=== PATIENT | male | born 1955 | race Caucasian/White ===

== ENCOUNTER 2019-01-29 19:31 | Emergency (ER) | payer OTHER ==
[~2019-01-29] VITALS: Ht 175.3 cm; Wt 93.9 kg
[2019-01-29 19:35] VITALS: BP 131/82
--- NOTE | 2019-01-29 19:35 | NUR ---
TO BED # 04 AMBULATORY
--- NOTE | 2019-01-29 19:40 | NUR ---
63 Y/O MALE LEFT LEG PAIN WITH REDNESS FOR 25 DAYS, SEEN BY PMD WITH REFERRAL LETTER. R/O DVT. A/OX4; FOLLOWS COMMANDS; BREATHING UNLABORED AND SYMMETRICAL. PAIN IS A 6/10 WHEN NOT PRESSING ON LEFT LEG. 8/10 NOTED; PATIENT STATES, "WHEN I PRESS ON THE BUMP ON MY LEG; IT FEELS LIKE IT WAS HIT WITH A HAMMER ". ERMD MADE AWARE OF STATUS. SIDE RAILS X1. AT BEDSIDE. WILL CONTINUE TO MONITOR. PMH:DENIES RX:DENIES SURGICAL HX: TOTAL HIP REPLACEMENT (2010); TEMPORARY AND PERMANANENT HIP REPLACEMENT (2019)
--- NOTE | 2019-01-29 19:53 | NUR ---
MD AT BEDSIDE EVALUATING PATIENT.
--- NOTE | 2019-01-29 20:26 | NUR ---
X-RAY AT BEDSIDE.
--- NOTE | 2019-01-29 22:11 | NUR ---
PATIENT IS QUIETLY SITTING IN BED. AT BEDSIDE. WILL CONTINUE TO MONITOR.
[2019-01-29 22:39] VITALS: BP 123/79
--- NOTE | 2019-01-29 22:39 | NUR ---
DPatient discharged with v/s stable. Written and verbal after care instructions given and explained. Patient alert, oriented and verbalized understanding of instructions. Ambulatory with steady gait. All questions addressed prior to discharge. ID band removed. Patient advised to follow up with PMD. Rx of NAPROSYN given. Patient educated on indication of medication including possible reaction and side effects. Opportunity to ask questions provided and answered.
== END 2019-01-29 22:39 | disposition home or self-care (01) ==
LOC: MED 19:31
DX: I83.92 Asymptomatic varicose veins of left lower extremity (principal); Z98.890 Other specified postprocedural states
CPT/HCPCS: 73590; 76881; 93971; 99284; Q0092

== ENCOUNTER 2019-03-21 14:15 | Emergency (ER) | payer OTHER ==
[~2019-03-21] VITALS: Ht 175.3 cm; Wt 93.9 kg
[2019-03-21 14:40] VITALS: BP 144/77
--- NOTE | 2019-03-21 14:46 | NUR ---
Triage completed, ambulates with steady gait out to ER waiting room.
--- NOTE | 2019-03-21 15:35 | NUR ---
PT TO ER BED 3
--- NOTE | 2019-03-21 15:48 | NUR ---
BIB SELF C/O DRY COUGH, WORSE AT NIGHT X 8 DAYS. NO SPUTUM PRODUCTION WITH COUGH. NO SOB, CHEST PAIN, FLU SYMPTOMS REPORTED. LUNG SOUNDS CLEAR IN BILATERAL LOBES. PT REPORTS TAKING COUGH SYRUP WITH CODEINE AT HOME BUT IT IS NOT HELPING. PT HAS BEEN SLEEPING INCLINED TO AVOID COUGHING THROUGHOUT THE NIGHT. NO PMH, NKA
[2019-03-21] MEDS ORDERED: DEXAMETHASONE 10 MG/ML VIAL IM ONE (15:50)
[2019-03-21 16:07] VITALS: BP 127/69
--- NOTE | 2019-03-21 16:07 | NUR ---
Patient discharged with v/s stable. Written and verbal after care instructions given and explained. Patient alert, oriented and verbalized understanding of instructions. Ambulatory with steady gait. All questions addressed prior to discharge. ID band removed. Patient advised to follow up with PMD. Rx of MEDROL, ALBUTEROL INHALER, TESSALON PERLES given. Patient educated on indication of medication including possible reaction and side effects. Opportunity to ask questions provided and answered.
== END 2019-03-21 16:07 | disposition home or self-care (01) ==
LOC: MED 14:15
DX: J40 Bronchitis, not specified as acute or chronic (principal)
CPT/HCPCS: 71045; 96372; 99283; J1100; Q0092

== ENCOUNTER 2019-11-07 17:23 | Emergency (ER) | payer OTHER ==
[~2019-11-07] VITALS: Ht 175.3 cm; Wt 96.6 kg
[2019-11-07 17:30] VITALS: BP 135/74
--- NOTE | 2019-11-07 17:44 | NUR ---
64 y/o male from home c/o left foot pain s/p stepping on sting ray 7 days ago. Pt states he feels like there is a part of the stinger left in foot. Mild redness noted to bottom of foot. Able to ambulate. +CMS. 6/10 burning pain, worse with ambulation. Skin warm, dry, intact. medhx: denies
--- NOTE | 2019-11-07 17:46 | NUR ---
WHITNEY Wellington at bedside examining pt
--- NOTE | 2019-11-07 18:11 | NUR ---
X-Ray at bedside.
[2019-11-07 18:44] VITALS: BP 124/69
--- NOTE | 2019-11-07 18:45 | NUR ---
Patient discharged with v/s stable. Written and verbal after care instructions given and explained. Patient alert, oriented and verbalized understanding of instructions. Ambulatory with steady gait. All questions addressed prior to discharge. ID band removed. Patient advised to follow up with PMD. Rx of Keflex 500mg and Naproxen 500mg given. Patient educated on indication of medication including possible reaction and side effects. Opportunity to ask questions provided and answered.
== END 2019-11-07 18:45 | disposition home or self-care (01) ==
LOC: MED 17:23
DX: L03.116 Cellulitis of left lower limb (principal); F17.200 Nicotine dependence, unspecified, uncomplicated
CPT/HCPCS: 73630; 99283

== ENCOUNTER 2020-10-26 14:31 | Emergency (ER) | payer OTHER ==
[~2020-10-26] VITALS: Ht 175.3 cm; Wt 96.6 kg
[2020-10-26 14:55] VITALS: BP 132/70
--- NOTE | 2020-10-26 15:20 | NUR ---
64 YO MALE BIBS C/O INTERMITTENT LLQ ABDOMINAL PAIN X3 DAYS. PAIN 4/10 AT REST, 6/10 WHEN SITTING UP, PRESSING ON THE AREA, AND COUGHING. PAIN IS NON RADIATING. SKIN IS INTACT, NO BRUISING OR SKIN DISCOLORATION TO ABD AREA. BOWEL SOUNDS ACTIVE X4. ABD IS SOFT, FLAT, TENDER TO TOUCH LLQ. PT STATES LBM TODAY X2 DESCRIBES NORMAL TO PT. DENIES URINARY FREQ, BURNING, OR DIFFICULTY STARTING A STREAM, PT STATES URINE COLOR IS ALSO NORMAL TO PATIENT. PT DENIES FEVER, CHILLS, N/V/D. A&OX4, RR EVEN AND UNLABORED. AT BEDSIDE. PMH: NONE NKDA.
--- NOTE | 2020-10-26 16:14 | NUR ---
DR KAT AT BEDSIDE EVALUATING PT.
[2020-10-26] MEDS ORDERED: NACL 0.9% 1,000 ML IV ONE (16:25)
--- NOTE | 2020-10-26 16:26 | NUR ---
JOHNSON collected, walked to lab and handed to CPT. Rebeca
[2020-10-26 16:57] LABS: BASOPHILS % (AUTO) 0.3 % (0.0-2.0); EOSINOPHILS # (AUTO) 0.2 K/uL (0-0.4); HEMATOCRIT 44.3 % (36-52); HEMOGLOBIN 14.9 g/dL (12.0-18.0); LYMPHOCYTES # (AUTO) 1.8 K/uL (2.0-11.5); LYMPHOCYTES % (AUTO) 23.5 % (20.5-51.1); MEAN CORPUSCULAR HEMOGLOBIN 31 pg (27-31); MEAN CORPUSCULAR HGB CONC 34 g/dL (33-37); MONOCYTES # (AUTO) 0.6 K/uL (0.8-1.0); MONOCYTES % (AUTO) 8.1 % (1.7-9.3); NEUTROPHILS # (AUTO) 4.9 K/uL (1.8-7.7); NEUTROPHILS % (AUTO) 65.1 % (42.2-75.2); PLATELET COUNT (AUTO) 217 K/uL (140-450); RED BLOOD CELL COUNT(AUTO) 4.77 MIL/uL (4.20-6.10); RED CELL DISTRIBUTION WIDTH 13.6 % (11.6-13.7); WHITE BLOOD COUNT (AUTO) 7.5 K/uL (4.8-10.8)
[2020-10-26 17:07] LABS: APPEARANCE,URINE CLEAR (CLEAR); BILIRUBIN,URINE NEGATIVE (NEGATIVE); BLOOD, URINE NEGATIVE (NEGATIVE); COLOR,URINE YELLOW (YELLOW); LEUKOCYTE ESTERASE ,URINE NEGATIVE (NEGATIVE); NITRITE, URINE NEGATIVE (NEGATIVE); PH,URINE 5.5 (5.0-9.0); UGLUCOSE NEGATIVE (NEGATIVE)
[2020-10-26 17:15] LABS: ANION GAP 11.7 (8-16); CARBON DIOXIDE 27.6 mmol/L (21-32); CREATININE 1.1 mg/dL (0.6-1.3); POTASSIUM 4.3 mmol/L (3.5-5.1); TOTAL BILIRUBIN 0.8 mg/dL (0.0-1.0)
--- NOTE | 2020-10-26 17:28 | NUR ---
Gabi landis in [facility] - 10/26/20 at 1728 by [email or web address] PT TAKEN TO CT VIA W/C
--- NOTE | 2020-10-26 17:28 | NUR ---
PT TRANSFERRED TO CT VIA W/C.
--- NOTE | 2020-10-26 17:42 | NUR ---
PT BACK FROM CT VIA W/C.
--- NOTE | 2020-10-26 18:19 | NUR ---
MD KAT IN ROOM WITH PATIENT.
[2020-10-26] MEDS ORDERED: MAGN1.7529 PO (18:46)
--- NOTE | 2020-10-26 19:06 | NUR ---
REPORT AND TRANSFER OF CARE ENDORSED TO [facility].
[2020-10-26 19:15] VITALS: BP 128/73
--- NOTE | 2020-10-26 19:15 | NUR ---
Patient discharged with v/s stable. Written and verbal after care instructions given and explained. Patient verbalized understanding. Ambulatory with steady gait. All questions addressed prior to discharge. Advised to follow up with PMD.
== END 2020-10-26 19:15 | disposition home or self-care (01) ==
LOC: MED 14:31
DX: K59.00 Constipation, unspecified (principal); Z79.899 Other long term (current) drug therapy; Z98.890 Other specified postprocedural states
CPT/HCPCS: 36415; 74177; 80053; 81003; 85025; 96360; 99285; J7030; Q9967

== ENCOUNTER 2020-11-29 09:36 | Emergency (ER) | payer OTHER ==
[~2020-11-29] VITALS: Ht 175.3 cm; Wt 98.4 kg
[~2020-11-29 09:36] MED LIST: MAGN1.7529 PO
[2020-11-29 09:41] VITALS: BP 134/75
--- NOTE | 2020-11-29 09:54 | NUR ---
PT SENT TO LOBBY
[2020-11-29 11:12] LABS: BASOPHILS % (AUTO) 0.3 % (0.0-2.0); EOSINOPHILS # (AUTO) 0.4 K/uL (0-0.4); EOSINOPHILS % (AUTO) 6.5 % (0.0-4.0); HEMOGLOBIN 15.3 g/dL (12.0-18.0); LYMPHOCYTES % (AUTO) 28.9 % (20.5-51.1); MEAN CORPUSCULAR HEMOGLOBIN 32 pg (27-31); MEAN CORPUSCULAR HGB CONC 34 g/dL (33-37); MEAN CORPUSCULAR VOLUME 93.7 fL (80-94); MONOCYTES # (AUTO) 0.6 K/uL (0.8-1.0); MONOCYTES % (AUTO) 8.9 % (1.7-9.3); NEUTROPHILS # (AUTO) 3.8 K/uL (1.8-7.7); NEUTROPHILS % (AUTO) 55.4 % (42.2-75.2); PLATELET COUNT (AUTO) 238 K/uL (140-450); RED CELL DISTRIBUTION WIDTH 13.4 % (11.6-13.7); WHITE BLOOD COUNT (AUTO) 6.8 K/uL (4.8-10.8)
[2020-11-29 11:26] LABS: ANION GAP 8.9 (8-16); CARBON DIOXIDE 31.2 mmol/L (21-32); CREATININE 1.1 mg/dL (0.6-1.3); POTASSIUM 4.1 mmol/L (3.5-5.1); TOTAL BILIRUBIN 0.7 mg/dL (0.0-1.0)
[2020-11-29 13:06] VITALS: BP 128/73
== END 2020-11-29 13:07 | disposition home or self-care (01) ==
LOC: MED 09:36
DX: R07.9 Chest pain, unspecified (principal); Z79.899 Other long term (current) drug therapy; Z98.890 Other specified postprocedural states
CPT/HCPCS: 36415; 71045; 80053; 82553; 83690; 83880; 84484; 85025; 93005; 99285

== ENCOUNTER 2021-02-22 14:00 | Emergency (ER) | payer OTHER ==
[~2021-02-22] VITALS: Ht 175.3 cm; Wt 99.5 kg
[2021-02-22 14:04] VITALS: BP 149/78
[2021-02-22] MEDS ORDERED: IBUPROFEN 600 MG TAB PO ONE (14:30)
[2021-02-22] MEDS ORDERED: IBUP-2213 PO (15:22)
[2021-02-22 15:37] VITALS: BP 149/78
--- NOTE | 2021-02-22 15:37 | NUR ---
Patient discharged with v/s stable. Written and verbal after care instructions ABOUT SHOULDER PAIN given and explained. Patient alert, oriented and verbalized understanding of instructions. Ambulatory with steady gait. All questions addressed prior to discharge. ID band removed. Patient advised to follow up with PMD. Rx of IBUPROFEN given.
== END 2021-02-22 15:37 | disposition home or self-care (01) ==
LOC: MED 14:00
DX: S46.911A Strain of unspecified muscle, fascia and tendon at shoulder and upper arm level, right arm, initial encounter (principal); I10 Essential (primary) hypertension; Z79.1 Long term (current) use of non-steroidal anti-inflammatories (NSAID); Z79.899 Other long term (current) drug therapy; X58.XXXA Exposure to other specified factors, initial encounter; Y92.89 Other specified places as the place of occurrence of the external cause; Y93.89 Activity, other specified; Y99.8 Other external cause status
CPT/HCPCS: 73000; 99283

== ENCOUNTER 2023-02-05 18:09 | Emergency (ER) | payer MEDICARE, OTHER ==
[~2023-02-05 18:09] MED LIST changes: +IBUP-2213 PO; -MAGN1.7529 PO; +MAGN296S70 PO
[2023-02-06] MEDS ORDERED: BACTO TP (10:09)
[2023-02-06] MEDS ORDERED: AMOX1TAB8 PO (10:09)
== END 2023-02-05 18:30 | disposition left against medical advice (07) ==
LOC: MED 18:09
DX: M79.603 Pain in arm, unspecified (principal); Z53.21 Procedure and treatment not carried out due to patient leaving prior to being seen by health care provider

== ENCOUNTER 2023-02-06 09:41 | Emergency (ER) | payer MEDICARE, OTHER ==
[~2023-02-06] VITALS: Ht 175.3 cm; Wt 82.1 kg
[2023-02-06 09:56] VITALS: BP 110/63; PULSE 59; RESP 20; TEMP 97.6; O2SAT 99
[2023-02-06] MEDS ORDERED: BACITRACIN OINT 500 UNITS/GM PKT TP ONE (10:00)
[2023-02-06] MEDS ORDERED: BACTO TP (10:09)
[2023-02-06] MEDS ORDERED: AMOX1TAB8 PO (10:09)
== END 2023-02-06 10:32 | disposition home or self-care (01) ==
LOC: MED 09:41
DX: S50.811A Abrasion of right forearm, initial encounter (principal); X58.XXXA Exposure to other specified factors, initial encounter; Y93.89 Activity, other specified; Y92.89 Other specified places as the place of occurrence of the external cause; Y99.8 Other external cause status
CPT/HCPCS: 90471; 90715; 99283